=== PATIENT | female | born 1995 | race Caucasian/White ===

== ENCOUNTER 2022-08-04 20:52 | Emergency (ER) | payer OTHER, SELFPAY ==
[2022-08-04 21:11] VITALS: BP 124/79; PULSE 78; RESP 16; TEMP 36.8; O2SAT 97; BMI 26.6
--- NOTE | 2022-08-04 21:57 | ED.NURSE ---
Patient reports moderate results following enema.
--- NOTE | 2022-08-05 09:27 | ED.ABDPAIN ---
HPI - Abdominal Pain General Chief Complaint: Constipation Stated Complaint: 16 weeks - abdominal pain 3 days Time Seen by Provider: 08/04/22 21:00 History of Present Illness HPI narrative: 26-year-old young woman here with a partner and 16 weeks of verified by US as intrauterine . First . Has concern of increasing abdominal discomfort and bloating. She does believe herself to be constipated with last bowel movement three days ago. She has struggled with this remotely once outside of . Didn't feel completely emptied three days ago thinking that she would be shortly going again and it just didn't happen. Firm stool. Has been taking MiraLAX and Colace and trying to stay hydrated. No fevers. No vaginal bleeding. No regular cramping. No unusual discharge. No dysuria but some frequency which she would attribute to hydration efforts. She then expresses hope for evaluation of ?to make sure that things are ok?. Desires an US of some sort. Has not yet felt quickening. Wants to know worrisome signs and symptoms for potential miscarriage. She doesn't have significant nausea. Still with breast tenderness. Again without bleeding. Had called into triage line and recommended to come to the ER. Related Data Home Medications Medication Instructions Recorded Confirmed docusate sodium 100 mg capsule 100 mg PO DAILY 08/04/22 08/04/22 (Colace) vit with calcium-iron tab PO DAILY 08/04/22 fum-folic acid 60 mg-0.8 mg tablet Allergies Allergy/AdvReac Type Severity Reaction Status Date / Time No Known Drug Allergies Allergy Verified 08/04/22 21:11 Review of Systems Status of ROS Reports: 10 or more systems reviewed and unremarkable except as noted in History and below [facility] Social History Smoking Status: Former smoker How often do you have a drink containing alcohol: never How often do you have six or more drinks on one occasion: Never AUDIT-C Alcohol total score: 0 Non-prescribed substance use: denies use Exam Narrative: Exam Narrative: Pleasant. NAD. Breathing easily. Skin is warm and dry. Extremities are without edema. Lungs appear to be clear. Heart in a regular rate and rhythm. Abdomen is appropriately gravid. soft. Not particularly tender. Does appear generally full. No flank pain. Const: Vital Signs, click to edit/add: Vital Signs - 24 hr 08/04/22 21:11 Temperature 98.3 F Pulse Rate [Pulse Oximeter] 78 Respiratory Rate 16 Blood Pressure [Le ft Upper Arm] 124/79 Pulse Oximetry 97 Oxygen Delivery Me thod Room Air Documenting provider has reviewed patient's vital signs: yes Course Vital Signs Vital signs: Initial Vital Signs Temperature 98.3 F 08/04/22 21:11 Temperature Source Temporal Artery Scan 08/04/22 21:11 Pulse Rate 78 08/04/22 21:11 Respiratory Rate 16 08/04/22 21:11 Blood Pressure 124/79 08/04/22 21:11 Blood Pressure Mean 94 08/04/22 21:11 Pulse Oximetry 97 08/04/22 21:11 Oxygen Delivery Method 08/04/22 21:11 Vital Signs Temperature 98.3 F 08/04/22 21:11 Pulse Rate 78 08/04/22 21:11 Respiratory Rate 16 08/04/22 21:11 Blood Pressure 124/79 08/04/22 21:11 Pulse Oximetry 97 08/04/22 21:11 Oxygen Delivery Method 08/04/22 21:11 Temperature 98.3 F 08/04/22 21:11 Pulse Rate 78 08/04/22 21:11 Respiratory Rate 16 08/04/22 21:11 Blood Pressure 124/79 08/04/22 21:11 Pulse Oximetry 97 08/04/22 21:11 Oxygen Delivery Method 08/04/22 21:11 MDM - Abdominal Pain MDM Narrative Medical decision making narrative: Does sound to be constipated. Certainly this could be contributing to all symptoms. Not tender enough for me to think that there is significant urinary retention; furthermore can evaluate with ultrasound. No symptoms to suggest miscarriage. I did perform bedside US verifying active IUP that looks c/w dates as reported. cardiac activity estimated around 150bpm. No significant urinary retention. Discussed options for treatment. Offered enema which she would like to do as I'm here. Moderate results and felt sxs improved. Discharge Plan Discharge Clinical Impression: Intrauterine , Abdominal discomfort, Constipation Patient Disposition: Home, Self-Care Condition: Improved Additional Instructions: Continue to focus on hydration. Can take 3 doses of MiraLax equivalent each in in around 8 oz of liquid by noon and then adjust to stool consistency. I would continue to take this then for 1-[address] another enema and repeat in an hour if no good result. Mineral oil versions are available as well. Can continue to take your Colace. Can temporarily add senna at-as a colonic irritant it aids in bowel squeeze. Return for marked increase in pain, vaginal bleeding, associated fever. Prescriptions: No Action vit-iron fum-folic ac 60-0.8 mg tablet PO DAILY docusate sodium [Colace] 100 mg capsule 100 mg PO DAILY Stand Alone Forms: [employer] Info Instructions
== END 2022-08-04 22:54 | disposition home or self-care (01) ==
LOC: ED 22:31
PROVIDERS: Emergency Provider Family Medicine
DX: R10.9 Unspecified abdominal pain (principal); K59.00 Constipation, unspecified; Z3A.16 16 weeks gestation of pregnancy
CPT/HCPCS: 99283; 99284

== ENCOUNTER 2022-12-31 14:48 | Inpatient (IN) | payer OTHER, SELFPAY ==
[2022-12-31] VITALS (21 sets, daily range): BP systolic 128–176; BP diastolic 80–116; PULSE 61–104; RESP 16–18; TEMP 36.5–36.6; O2SAT 98
--- NOTE | 2022-12-31 15:36 | ED.GENADULT ---
HPI - General Adult General Chief complaint: Hypertension Stated complaint: Elevated Blood Pressure after Childbirth Time Seen by Provider: 12/31/22 14:52 History of Present Illness HPI narrative: This 27-year-old female comes in with elevated blood pressure. She delivered her 1st baby vaginally 3 days ago at about 37 weeks gestation. She states that she had Linus Bright contractions and received IV fluids and magnesium and the contractions dissipated. She then developed increased blood pressure so that her research & insights executive decided to induced delivery. This was at a hospital in [place]. She was discharged yesterday and had been on nifedipine with normal blood pressures. She was not sent home with any nifedipine. She was instructed to check her blood pressure and today it was elevated. She arrives with a blood pressure of 172/110. She does not report any headache, fever, or dysuria symptoms. Related Data Home Medications Medication Instructions Recorded Confirmed docusate sodium 100 mg capsule 100 mg PO DAILY 08/04/22 08/04/22 (Colace) vit with calcium-iron tab PO DAILY 08/04/22 fum-folic acid 60 mg-0.8 mg tablet Allergies Allergy/AdvReac Type Severity Reaction Status Date / Time No Known Drug Allergies Allergy Verified 08/04/22 21:11 Review of Systems Status of ROS: Reports: 10 or more systems reviewed and unremarkable except as noted in History and below Narrative: Constitutional: No fevers, no weight gain or loss. Eyes: No discharge. No vision changes. HENT: No congestion, no sore throat, no ear pain. Cardiovascular: No chest pain, no palpitations. Respiratory: No shortness of breath, no wheezes, no cough. Gastrointestinal: No vomiting, no diarrhea. Genitourinary: No dysuria, no hematuria. Musculoskeletal: Normal range of motion. Skin: No rashes, no pruritis. Neurological: No dizziness, weakness, sensory change, speech change. Endo/Heme/Allergies: No bruising or bleeding. No polydipsia. Pysch: no suicidality, no anxiety, no insomnia. All other systems reviewed and are negative. [facility] Social History Smoking Status: Former smoker How often do you have a drink containing alcohol: never How often do you have six or more drinks on one occasion: Never AUDIT-C Alcohol total score: 0 Non-prescribed substance use: denies use Exam Narrative: Exam Narrative: Constitutional: Well-developed, well-nourished, no acute distress. HEENT: Normocephalic, atraumatic. Neck: Normal range of motion. Nontender. Supple. Heart: Intact distal pulses. Lungs: No chest discomfort. No wheezes, rhonchi, or rales. Abdomen: Nontender. Back: Normal range of motion. Extremities: Normal range of motion. No injury. No significant pedal edema. Skin: Intact. No rash. Warm. No erythema or pallor. Neurologic: No altered sensation. No weakness. Alert and oriented. Psychiatric: No suicidality. No anxiety or depression. No insomnia. Nursing notes and vitals signs are reviewed. Const: Vital Signs, click to edit/add: Vital Signs - 24 hr 12/31/22 14:58 Temperature 97.9 F Pulse Rate [Right Pulse Oximeter] 61 Respiratory Rate 18 Blood Pressure [Ri ght Upper Arm] 172/110 H Pulse Oximetry 98 Oxygen Delivery Me thod Room Air Course Vital Signs Vital signs: Initial Vital Signs Temperature 97.9 F 12/31/22 14:58 Temperature Source Temporal Artery Scan 12/31/22 14:58 Pulse Rate 61 12/31/22 14:58 Respiratory Rate 18 12/31/22 14:58 Blood Pressure 172/110 H 12/31/22 14:58 Blood Pressure Mean 130 H 12/31/22 14:58 Blood Pressure Position Sitting 12/31/22 14:58 Pulse Oximetry 98 12/31/22 14:58 Oxygen Delivery Method Room Air 12/31/22 14:58 Vital Signs Temperature 97.9 F 12/31/22 14:58 Pulse Rate 61 12/31/22 14:58 Respiratory Rate 18 12/31/22 14:58 Blood Pressure 172/110 H 12/31/22 14:58 Pulse Oximetry 98 12/31/22 14:58 Oxygen Delivery Method Room Air 12/31/22 14:58 Temperature 97.9 F 12/31/22 14:58 Pulse Rate 61 12/31/22 14:58 Respiratory Rate 18 12/31/22 14:58 Blood Pressure 172/110 H 12/31/22 14:58 Pulse Oximetry 98 12/31/22 14:58 Oxygen Delivery Method Room Air 12/31/22 14:58 Medical Decision Making MDM Narrative Medical decision making narrative: This patient comes in because of elevated blood pressure after delivering her 1st child. She arrives with blood pressure 172/110. She did have elevated blood pressure toward the end of her and this brought about a early delivery at 37 weeks gestation. I consulted with the obstetric physician on-call, Dr. Barker, who stated that the patient will need to be admitted to the hospital. An IV was established where she received an order for 4 g of magnesium sulfate. Labs are acquired including complete blood count, AST, ALT, creatinine, and BUN. The patient also received an immediate release dose of nifedipine 10 mg. Discharge Plan Discharge Clinical Impression: hypertension Patient Disposition: Admitted As Inpatient Condition: Unchanged Prescriptions: No Action vit-iron fum-folic ac 60-0.8 mg tablet PO DAILY docusate sodium [Colace] 100 mg capsule 100 mg PO DAILY Follow Up/Referrals: Provider,Not a Local [Primary Care Provider] -
[2022-12-31] MEDS: NIFEdipine 10 MG CAPSULE PO (15:55)
[2022-12-31] MEDS: MAGNESIUM IV 4 GM/100 ML PIGGYBACK IVPB (15:55)
[2022-12-31 16:11] LABS: Hematocrit 35.4 % (33.0-51.0); Hemoglobin* 12.1 gm/dL (12.0-16.0); Mean Corpuscular HGB Conc 34 gm/dL (32-36); Mean Corpuscular Hemoglobin 34 pg (26-34); Mean Corpuscular Volume 99 fL (80-100); Platelet Count* 244 K/uL (140-440); Red Blood Count 3.58 m/uL (4.00-5.20); Slide Review Reflex No; White Blood Count* 12.46 K/uL (4.50-11.00)
[2022-12-31] MEDS: LACTATED RINGERS 1000 ML 1,000 ML 75 ML IV (16:46)
[2022-12-31 17:34] LABS: Alanine Aminotransferase* 231 U/L (4-35); Aspartate Amino Transferase* 201 U/L (12-35); Blood Urea Nitrogen* 9 mg/dL (5-24); Creatinine* 0.7 mg/dL (0.5-1.5); Estimated Glomerular Filt Rate 121 ml/min
--- NOTE | 2022-12-31 18:12 | PM.GYNHPNOR ---
CLINICAL TRIALS SPECIALIST - H&P:HPI Medical History of Present Illness Time Seen by Provider: 18:12 Date Seen: 12/31/22 Reason for admission: other ( hypertension) Narrative: HPI: Paige Eli is a 27 year old female 1 para 1 who is status post a normal spontaneous vaginal delivery on 12/28/2022 at [facility] [place], [place]. She had a baby girl named Olga who weighed 6 lb 7 oz. She was just over 37 weeks She received her care from the qa software test engineer group there. She had an uncomplicated until approximately 1 week ago when she began having increasing edema and was seen in the triage area of the center in [facility] for 16 hours for contractions. 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 Paige states that she received magnesium sulfate during labor and for 24 hours after delivery. She had a normal spontaneous vaginal delivery on 11/28/2022 with a second-degree laceration. Sounds like the delivery was uncomplicated per her report. Her blood pressure was treated with nifedipine orally while she was in the hospital but she was discharge without antihypertensives. She was discharged home yesterday on 12/30/2022 with 3 days of Lasix 20 mg daily and was told to take her blood pressure. Paige reports continued bilateral lower extremity edema that is not severe and otherwise denies: Headaches, visual disturbance, right upper quadrant/midepigastric pain, nausea/vomiting. She has vaginal bleeding that she describes as a moderate to light menstrual cycle. She is and told to start supplementing because the baby had lost 10% of her body weight. She has her breast pump. Paige took her blood pressure at home this afternoon and was noted to be 160-170/100s so she presented to the emergency department in [place], it is unclear why she did not go to [facility]. She lives in [place] so the [place] emergency department is closer. In the emergency room her blood pressure was 160-170s/100's. Dr. Feuntes (ED physician) contacted me and I recommended that they give her dose of immediate release nifedipine 10 mg, start an IV to do a magnesium load of 4 g followed by 2 grams/hour and ordered a set of serum preeclampsia labs. I also recommended that she be admitted to the hospital for magnesium sulfate and blood pressure management. [facility] was contacted to have them send Paige's delivery record and discharge summary. 13 point review of systems is negative unless described in the HPI above. Paige's past medical, surgical, family and social histories were reviewed and updated in her electronic medical record. OBSTETRIC HISTORY: 1. 11/28/2022. . 37 weeks. IOL for preeclampsia. Girl. 6 lb 7 oz. Olga. [facility]. GYNECOLOGIC HISTORY: Cis gender, heterosexual woman Cycles are regular every 28-30 days lasting 5 days. History of STI: No History of PID: No History of abnormal Pap smear: No Last Pap smear: Unsure, awaiting records. Meds Home Medications and Allergies Home Medications Medication Instructions Recorded Confirmed Type docusate sodium 100 mg capsule 100 mg PO DAILY 08/04/22 08/04/22 History (Colace) vit with calcium-iron tab PO DAILY 08/04/22 History fum-folic acid 60 mg-0.8 mg tablet Allergies Allergy/AdvReac Type Severity Reaction Status Date / Time No Known Drug Allergies Allergy Verified 08/04/22 21:11 PFS Active Problems (Updated 12/31/22 @ 19:17 by Paige Barker MD) Pre-eclampsia, severe, condition (Acute) ?O14.15 - Severe pre-eclampsia, complicating the puerperium (ICD-10) Medical History (Updated 12/31/22 @ 19:17 by Paige Barker MD) Depression with anxiety ?F41.8 - Other specified anxiety disorders (ICD-10) Asthma ?J45.909 - Unspecified asthma, uncomplicated (ICD-10) (normal spontaneous vaginal delivery) (12/28/22) ?O80 - Encounter for full-term uncomplicated delivery (ICD-10) Surgical History (Updated 12/31/22 @ 19:17 by Paige Barker MD) History of wisdom tooth extraction ?K08.409 - Partial loss of teeth, unspecified cause, unspecified class (ICD-10) Family History (Updated 12/31/22 @ 19:21 by Paige Barker MD) Maternal Grandmother Alzheimers disease Father High blood pressure Skin cancer Brother GERD (gastroesophageal reflux disease) Mother GERD (gastroesophageal reflux disease) IBS (irritable bowel syndrome) Maternal Grandfather Stroke Social History (Updated 12/31/22 @ 19:18 by Paige Barker MD) Narrative: Cist-gender, heterosexual woman. Relationship status: . 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 E-cigarettes: None Alcohol: Prior to 1-3 servings/week. No alcohol intake since 05/08/2022 Illicit/recreational drugs: None Safety concerns at home or work: No Dietary restriction(s): None Exercise: No. Smoking Status: Former smoker How often do you have a drink containing alcohol: never How often do you have six or more drinks on one occasion: Never AUDIT-C Alcohol total score: 0 Non-prescribed substance use: denies use Reproductive Health History History of abnormal pap smear: No : 1 Para: 1 Hx # Term Pregnancies: 1 CLINICAL TRIALS SPECIALIST - Exam Physical Exam: Vital signs: Temp Pulse Resp BP Pulse Ox O2 Del Method 97.9 F 61 18 165/102 H 98 Room Air 12/31/22 14:58 12/31/22 14:58 12/31/22 14:58 12/31/22 16:02 12/31/22 14:58 12/31/22 14:58 Narrative: GENERAL APPEARANCE: Pleasant, , well-groomed woman in no acute distress. VITAL SIGNS: as noted in nursing notes HEAD: Normocephalic, atraumatic. THYROID: no masses, nodularity, tenderness or enlargement. LUNGS: Clear to auscultation bilaterally without wheezes, rales or rhonchi. HEART: Regular rate and rhythm with normal S1 and S2. No gallop, rub or murmur. ABDOMEN: Gravid. Soft, nontender, nondistended, with normal bowels sounds throughout. Fundus firm at 3 cm below the umbilicus in the midline. EXTREMITIES: No cyanosis, clubbing or varicosities. 1+ bilateral lower extremity edema to the ankle, compression stockings in place. SCDs ordered. NEUROLOGIC: Normal gait and balance. Normal deep tendon reflexes at bilateral patella 2+/2, equal without clonus. PSYCHIATRIC: alert and oriented x3. Normal speech pattern, eye contact and affect. SKIN: Warm, dry, and well perfused. Good turgor. No lesions, nodules or rashes. CLINICAL TRIALS SPECIALIST - Results Labs Labs: Short CBC 12/31/22 Range/Units 16:00 WBC 12.46 H (4.50-11.00) K/uL Hgb 12.1 (12.0-16.0) gm/dL Hct 35.4 (33.0-51.0) % Plt Count 244 (140-440) K/uL BMP 12/31/22 16:00 BUN 9 Creatinine 0.7 Liver Function 12/31/22 Range/Units 16:00 AST 201 H (12-35) U/L ALT 231 H (4-35) U/L Assessment and Plan Assessment and plan (1) Pre-eclampsia, severe, condition: Status: Acute Plan 1. The patient received immediate release nifedipine 10 mg p.o. at 3:55 p.m. in the emergency department. 2. Nifedipine XL 30 mg 1st dose to be given this evening with 2nd dose scheduled at 9:00 a.m. on 01/01/2023. Is currently ordered daily but may need b.i.d. dosing. 3. Add labetalol 100-200 mg p.o. b.i.d. if needed. 4. Patient received magnesium sulfate 4 g IV load and is running at 2 grams/hour. 5. Continue magnesium sulfate for 24 hours. 6. Serum preeclampsia labs ordered for 5:00 a.m. on 01/01/2023. 7. Plan on discharge home no sooner than 24 hours after the magnesium has been discontinued to verify her blood pressure is under control before discharge. 8. Dr. Alison Lauren will assume care of this patient at 7:00 a.m. on 01/01/2023.
[2022-12-31] MEDS: NIFEdipine 30 MG TAB.ER.24 PO (19:18)
--- NOTE | 2022-12-31 19:35 | PC.NURSE ---
Pt. to unit via w/c at 1615. 4gm bolus of Mag. infusing. Pre-E assessment done. Reviewed pt.'s hx with her. Per pt she was induced on 12/27 for pre-e at her clinic appt. her BP was high and she had edema and delivered vaginally on 12/28 with a 2nd degree tear. She was on Mag while in labor and states she was on nifedipine . States she received a dose of lasix while in the hospital and sent home with lasix, she took 20mg this morning. She was teary on admit states she really didn't want to be readmitted, she is concerned about the baby who had a nurse visit today and the wt was down 9.7% and the bili was higher. Dr. Barker called for orders at 1630 for Mag orders. has seen her.
[2023-01-01 04:30] VITALS: BP 147/92; PULSE 75; RESP 16; TEMP 36.8
[2023-01-01 05:15] LABS: Hematocrit 38.1 % (33.0-51.0); Hemoglobin* 13.1 gm/dL (12.0-16.0); Mean Corpuscular HGB Conc 34 gm/dL (32-36); Mean Corpuscular Hemoglobin 34 pg (26-34); Mean Corpuscular Volume 98 fL (80-100); Platelet Count* 268 K/uL (140-440); Red Blood Count 3.87 m/uL (4.00-5.20)
[2023-01-01 05:18] LABS: Slide Review Reflex No
[2023-01-01 05:30] LABS: Alanine Aminotransferase* 352 U/L (4-35); Aspartate Amino Transferase* 247 U/L (12-35); Blood Urea Nitrogen* 10 mg/dL (5-24); Creatinine* 0.6 mg/dL (0.5-1.5); Estimated Glomerular Filt Rate 125 ml/min
[2023-01-01] MEDS: LACTATED RINGERS 1000 ML 1,000 ML 75 ML IV (05:55)
[2023-01-01] MEDS: ACETAMINOPHEN 500 MG TABLET 1000 MG PO (06:09)
[2023-01-01 08:53] VITALS: BP 143/92; PULSE 81; RESP 16; TEMP 36.6
[2023-01-01] MEDS: NIFEdipine 30 MG TAB.ER.24 PO (09:05)
--- NOTE | 2023-01-01 09:15 | PM.GYNPNNOR ---
Progress Note: A&P Assessment and plan (1) Pre-eclampsia, severe, condition: Status: Acute Plan 1. Continue magnesium sulfate infusion for a minimum of 24 hours. Continue to monitor urine output for diuresis. 2. Will check another set of labs at noon today. Will continue to check labs until the liver function tests start to trend downward. 3. Continue nifedipine XL 30 mg p.o. b.i.d.. 4. We discussed discharge planning. The patient will need to stay in the hospital for at least 24 hours following discontinuation of magnesium sulfate infusion to monitor blood pressures. She will likely be discharged to home on antihypertensive medication. 5. Continue support as needed. Infant will be seeing 1 of our pediatricians for follow-up this afternoon in the clinic. WAITER/WAITRESS COCKTAIL LOUNGE- PN:Subj Non-OR Subjective Time Seen by Provider: 08:45 Date Seen: 01/01/23 Interval history: The patient is hospital day number 2, day number 4 following a vaginal delivery at [facility] in [place], [place]. She was admitted yesterday for severe preeclampsia. Her labor had been induced at 37 1/7 weeks gestation for preeclampsia. The delivery was uncomplicated. She had apparently been discharged to home with a prescription for Lasix, but no other antihypertensive medications. The patient is currently on magnesium sulfate infusion, and she is receiving nifedipine XL 30 mg b.i.d.. Her blood pressures have been stable. She feels well. She denies headaches, visual changes, right upper quadrant pain, nausea, or lightheadedness. She has a little bit of cramping discomfort with . Her lochia is scant. She has passed some very small clots since admission. She has had a bowel movement yesterday. WAITER/WAITRESS COCKTAIL LOUNGE-PN: Obj Exam Physical Exam: Vital signs: Temp Pulse Resp BP Pulse Ox O2 Del Method 97.8 F 81 16 143/92 H 98 Room Air 01/01/23 08:53 01/01/23 08:53 01/01/23 08:53 01/01/23 08:53 12/31/22 14:58 01/01/23 08:53 Constitutional: Constitutional: no acute distress and cooperative Routine HEENT Exam: Head: Present normal inspection Routine Respiratory Exam: Respiratory: Present CTA bilaterally Routine Cardiovascular Exam: Cardiovascular: Present RRR Detailed Abdominal Exam: Comments: Fundus firm, nontender Routine Extremities Exam: Extremities: Present pedal edema (1+); Absent calf tenderness WAITER/WAITRESS COCKTAIL LOUNGE - PN: Obj Data Labs Labs: Laboratory Results - last 24 hr 12/31/22 01/01/23 16:00 05:10 WBC 12.46 H 13.00 H RBC 3.58 L 3.87 L Hgb 12.1 13.1 Hct 35.4 38.1 MCV 99 98 MCH 34 34 MCHC 34 34 Plt Count 244 268 BUN 9 10 Creatinine 0.7 0.6 Estimated GFR 121 125 AST 201 H 247 H ALT 231 H 352 H
[2023-01-01] MEDS: IBUPROFEN 600 MG TABLET PO ×2 (10:16→21:10)
[2023-01-01 12:13] LABS: Basophils Percent Auto 0.2 % (0.0-3.0); Eosinophils Percent Auto 3.1 % (0.0-7.0); Hematocrit 39.2 % (33.0-51.0); Hemoglobin* 13.3 gm/dL (12.0-16.0); Immature Granulocytes Pct Auto 0.2 %; Lymphocytes Percent Auto 10.9 % (20-44); Mean Corpuscular HGB Conc 34 gm/dL (32-36); Mean Corpuscular Hemoglobin 34 pg (26-34); Mean Corpuscular Volume 99 fL (80-100); Monocytes Percent Auto 5.9 % (0.0-11.0); Neutrophils Percent Auto 79.7 % (42.0-72.0); Platelet Count* 298 K/uL (140-440); RDW Coefficient of Variation % 12.8 % (11.5-15.5); Red Blood Count 3.97 m/uL (4.00-5.20); White Blood Count* 12.43 K/uL (4.50-11.00)
[2023-01-01 12:16] LABS: Slide Review Reflex No
[2023-01-01 12:41] LABS: Alanine Aminotransferase* 345 U/L (4-35); Aspartate Amino Transferase* 219 U/L (12-35); Blood Urea Nitrogen* 10 mg/dL (5-24); Creatinine* 0.7 mg/dL (0.5-1.5); Estimated Glomerular Filt Rate 121 ml/min
[2023-01-01 12:45] VITALS: BP 148/91; PULSE 78; RESP 16; TEMP 36.4; O2SAT 98
[2023-01-01 16:04] VITALS: BP 130/81; PULSE 78; RESP 16; TEMP 36.3; O2SAT 98
[2023-01-01 21:06] VITALS: BP 133/86; PULSE 86; RESP 16; TEMP 36.6; O2SAT 98
[2023-01-01] MEDS: NIFEdipine 30 MG TAB.ER.24 60 MG PO (21:10)
[2023-01-02 00:24] VITALS: BP 126/81; PULSE 78; RESP 16; TEMP 36.7; O2SAT 98
[2023-01-02] MEDS: ACETAMINOPHEN 500 MG TABLET 1000 MG PO ×2 (04:30→11:56)
[2023-01-02 04:32] VITALS: BP 133/90; PULSE 70; RESP 16; TEMP 36.6; O2SAT 98
[2023-01-02 05:21] LABS: Basophils Absolute Auto 0.04 K/uL (0.00-0.30); Basophils Percent Auto 0.4 % (0.0-3.0); Eosinophils Absolute Auto 0.43 K/uL (0.00-0.50); Eosinophils Percent Auto 4.1 % (0.0-7.0); Hematocrit 38.4 % (33.0-51.0); Hemoglobin* 13.2 gm/dL (12.0-16.0); Immature Granulocytes Abs Auto 0.03 K/uL (0.00-0.30); Immature Granulocytes Pct Auto 0.3 %; Mean Corpuscular HGB Conc 34 gm/dL (32-36); Mean Corpuscular Hemoglobin 34 pg (26-34); Mean Corpuscular Volume 99 fL (80-100); Monocytes Percent Auto 7.7 % (0.0-11.0); Neutrophils Percent Auto 72.5 % (42.0-72.0); Platelet Count* 287 K/uL (140-440); RDW Coefficient of Variation % 12.9 % (11.5-15.5); Red Blood Count 3.87 m/uL (4.00-5.20); White Blood Count* 10.44 K/uL (4.50-11.00)
[2023-01-02 05:27] LABS: Slide Review Reflex No
[2023-01-02 05:33] LABS: Alanine Aminotransferase* 251 U/L (4-35); Aspartate Amino Transferase* 93 U/L (12-35); Blood Urea Nitrogen* 15 mg/dL (5-24); Creatinine* 0.7 mg/dL (0.5-1.5); Est. Creatinine Clearance* 103.32; Estimated Glomerular Filt Rate 121 ml/min
[2023-01-02] MEDS: NIFEdipine 30 MG TAB.ER.24 60 MG PO (09:04)
[2023-01-02] MEDS: IBUPROFEN 600 MG TABLET PO ×2 (09:04→15:51)
[2023-01-02 09:09] VITALS: BP 135/85; PULSE 74; RESP 16; TEMP 36.4; O2SAT 98
[2023-01-02 11:48] VITALS: BP 122/85; PULSE 75; RESP 16; TEMP 36.9; O2SAT 98
--- NOTE | 2023-01-02 12:38 | P.DS_ITS ---
DS: Providers Provider Time Seen by Provider: 08:30 Date Seen: 01/02/23 Date of admission: 12/31/22 17:12 Primary care physician: Not a Local Provider Admitting Clinician: Paige Barker MD Attending Physician on discharge: Makayla Ray MD Date of Discharge: 01/02/23 DS: Diagnosis Discharge Diagnosis (1) Pre-eclampsia, severe, condition: Status: Acute Exam Narrative: Exam Narrative: VITAL SIGNS: As noted above. GENERAL APPEARANCE: Alert, cooperative female in no acute distress. MOOD & AFFECT: Normal. HEART: Regular rate and rhythm without murmurs. LUNGS: Lungs are clear to auscultation bilaterally. No crackles, wheezes, or rhonchi. ABDOMEN: Soft, non-distended and nontender. Well contracted uterus at umbilicus. : Normal pp lochia. EXTREMITIES:SCDs in place. Well perfused. Nontender. NEURO: Intact. Const: Vital Signs, click to edit/add: Vital Signs - 24 hr 01/01/23 12:45 01/01/23 16:04 01/01/23 21:06 Temperature 97.6 F 97.3 F L 97.9 F Pulse Rate [Pulse Oximeter] 78 78 Pulse Rate [Right Blood Pressure Cuf f] 86 Respiratory Rate 16 16 16 Blood Pressure [Le ft Arm] 148/91 H Blood Pressure [Ri ght Arm] 130/81 133/86 Pulse Oximetry 98 98 98 Oxygen Delivery Me thod Room Air Room Air Room Air 01/02/23 00:24 01/02/23 04:32 01/02/23 09:09 Temperature 98.1 F 97.8 F 97.5 F L Pulse Rate [Pulse Oximeter] Pulse Rate [Right Blood Pressure Cuf f] 78 70 74 Respiratory Rate 16 16 16 Blood Pressure [Le ft Arm] Blood Pressure [Ri ght Arm] 126/81 133/90 H 135/85 Pulse Oximetry 98 98 98 Oxygen Delivery Me thod Room Air Room Air Room Air 01/02/23 11:48 Temperature 98.4 F Pulse Rate [Pulse Oximeter] Pulse Rate [Right Blood Pressure Cuf f] 75 Respiratory Rate 16 Blood Pressure [Le ft Arm] Blood Pressure [Ri ght Arm] 122/85 Pulse Oximetry 98 Oxygen Delivery Me thod Room Air OB - DS: Summary Hospital Course Hospital Course: The patient is a 27 year old G 1 P 1001 that was admitted to the Center on 12/31/22 on her PPD#3 due to preeclampsia with severe features. Patient had a at [facility] and was diagnosed with preeclampsia, was not discharged with antihypertensive medication, was told to monitor BPs at home and noted severely elevated. Patient was started on IV Magnesium Sulfate infusion that was discontinued at 4pm on 01/01/23. She was started on Nifedipine 60mg BID and this has kept BPs under control. Transaminitis noted at admission, improving and liver enzymes on downward trend.Today patient denies SOB, vision changes, persistent headaches, lower extremity swelling has also improved. After 24 hours of monitoring after Magnesium sulfate therapy patient is stable for discharge. Peripartum Data delivery method: Vaginal Laceration description: Perineal - 2nd Degree [place] Infant Gender: Female Infant Discharge Plan: Home Status at Discharge Functional status at discharge: independent ambulation Overall status at discharge: patient is progressing back to baseline Time Spent with Patient Time attestation: Total time spent providing and/or coordinating discharge services: Time spent: Less than 30 minutes Discharge Plan Discharge Disposition: Home, Self-Care Date of Admission: 12/31/22 15:51 Attending Provider on Discharge: Makayla Ray Primary Care Provider: Provider,Not a Local Condition: Stable Anticipated Discharge Date/Time: 01/02/23 17:00 Discharge Medications: New acetaminophen 500 mg Tablet 1,000 mg PO Q6H PRN (Reason: pain/fever) Qty: 15 0RF ibuprofen 600 mg Tablet 600 mg PO Q6H PRN (Reason: Pain) Qty: 30 0RF nifedipine 60 mg tablet extended release 24hr 60 mg PO BID 30 Days Qty: 60 2RF Continued vit-iron fum-folic ac 60-0.8 mg tablet 1 tab PO DAILY docusate sodium [Colace] 100 mg capsule 100 mg PO DAILY Discharge Orders: Discharge Order (Routine); Ordered 01/02/23 Ordered By: Makayla Ray Patient Education: Preeclampsia and Eclampsia After Delivery (GEN) Additional Instructions: Continue to monitor blood pressures once or twice a day, notify clinic if blood pressures are more than 150 systolics or 100 diastolics, persistently. Notify clinic if there is headaches that do not go away with Tylenol, vision changes or pain in the upper abdomen. Follow up in clinic in 3-5 days for BP check and repeat liver enzymes. Appointment made for Friday01/06/23 @11:00am [facility]. Activity Level: Activity as Tolerated Activity Detail: Nothing vaginally for 6 weeks Discharge Diet: Regular Follow Up Appointments: Provider,Not a Local [Primary Care Provider] - Forms: [employer] Info Instructions
[2023-01-02 15:43] VITALS: BP 123/79; PULSE 63; RESP 16; TEMP 37.1; O2SAT 98
== END 2023-01-02 17:00 | disposition home or self-care (01) | DRG 776 ==
LOC: ED 15:41 → OB 01-02 12:38 → MEDSURG 01-07 11:07
PROVIDERS: Obstetrics & Gynecology; Admitting Provider Obstetrics & Gynecology; Emergency Provider Emergency Medicine Emergency Medical Services; Visit Provider Obstetrics & Gynecology
DX: O14.15 Severe pre-eclampsia, complicating the puerperium (principal)
CPT/HCPCS: 36415; 82565; 84450; 84460; 84520; 85025; 85027; 99284; A9270; J3475; J7120

== ENCOUNTER 2023-01-06 11:06 | Outpatient (CLI) | payer OTHER, SELFPAY | END 2023-01-06 11:07 | disposition home or self-care (01) | LOC: NFLDREF 01-07 11:57 | PROVIDERS: Visit Provider Obstetrics & Gynecology | DX: O14.15 Severe pre-eclampsia, complicating the puerperium (principal) | CPT/HCPCS: 84450; 84460 ==